=== PATIENT | male | born 1955 ===

== ENCOUNTER 2025-07-12 07:30 | Outpatient (CLI) | payer BC | END 2025-07-12 07:31 | disposition home or self-care (01) | LOC: ULT 07:30 | PROVIDERS: ATTEND Internal Medicine Nephrology | DX: N17.9 Acute kidney failure, unspecified (principal); N28.1 Cyst of kidney, acquired; N28.89 Other specified disorders of kidney and ureter | CPT/HCPCS: 76770 ==